=== PATIENT | female | born 1965 | race Two or more races ===

== ENCOUNTER 2017-01-12 19:18 | Emergency (ER) | payer MEDICARE, MEDICAID ==
[~2017-01-12] VITALS: Ht 177.8 cm; Wt 70.0 kg
[2017-01-13 00:18] VITALS: BP 110/70
[2017-01-13] MEDS ORDERED: VISCOUS LIDOCAINE 2% 15 ML UDC PO STA (00:19)
[2017-01-13] MEDS ORDERED: MAGNESIUM/ALUMINUM HYDROXIDE/SIMETHICONE 30ML UDC PO STA (00:19)
[2017-01-13] MEDS ORDERED: DICYCLOMINE 10 MG/5 ML ORAL SYR PO STA (00:19)
[2017-01-13] MEDS ORDERED: KETOROLAC 30MG/ML VIAL IV STA (00:19)
[2017-01-13] MEDS ORDERED: SODIUM CHLORIDE 0.9% 500 ML IV ONE (00:45)
== END 2017-01-13 01:06 | disposition left against medical advice (07) ==
LOC: ER 19:52
DX: R10.12 Left upper quadrant pain (principal); R10.13 Epigastric pain; R11.2 Nausea with vomiting, unspecified; K63.1 Perforation of intestine (nontraumatic); F17.200 Nicotine dependence, unspecified, uncomplicated; Z90.49 Acquired absence of other specified parts of digestive tract; Z98.84 Bariatric surgery status
CPT/HCPCS: 99281; J7040; J1885